=== PATIENT | female | born 1990 | race Hispanic/Latino ===

== ENCOUNTER 2024-06-22 10:22 | Emergency (ER) | payer SELFPAY ==
[2024-06-22] VITALS (8 sets, daily range): BP systolic 115–131; BP diastolic 83–96
[~2024-06-22] VITALS: Ht 152.4 cm; Wt 83.9 kg
[2024-06-22 11:06] LABS: BASO% 0.7 % (0-3); EOS% 3.2 % (0-8); HEMATOCRIT 29.9 % (37.0-47.0); IMMATURE GRANULOCYTES 0.1 % (0.0-5.0); LYMPH% 27.9 % (15-41); MEAN CELL VOLUME 93.1 fL CALC (80.0-100.0); MEAN CORPUSCULAR HGB 31.2 pG CALC (26.0-32.0); MEAN CORPUSCULAR HGB CONC 33.4 g/dL CAL (32.0-36.0); MONO% 7.2 % (2-13); NEUT# 4.5 thou/uL (2.00-7.15); NEUT% 60.9 % (42-76); RED BLOOD COUNT 3.21 mill/uL (4.20-5.60); RED CELL DISTRI WIDTH 13.9 % (11.5-15.5)
[2024-06-22 11:25] LABS: CREATININE 1.5 mg/dL (0.5-1.0); POTASSIUM 3.9 mmol/l (3.5-5.1)
[2024-06-22] MEDS ORDERED: SODIUM CHLORIDE 0.9% 1,000 ML IV ONE (11:50)
[2024-06-22] MEDS ORDERED: KETOROLAC TROMETHAMINE 30 MG/ML SDV IM ONE (13:05)
[2024-06-22] MEDS ORDERED: ALUM & MAG HYDROX-SIMETHICONE 30 ML PO ONE (13:05)
[2024-06-22] MEDS ORDERED: LIDOCAINE VISCOUS 2% 15 ML UDC PO ONE (13:05)
== END 2024-06-22 13:49 | disposition home or self-care (01) | DRG 392 ==
LOC: ED 10:22
PROVIDERS: Family Medicine
DX: R13.10 Dysphagia, unspecified (principal); K22.89 Other specified disease of esophagus